=== PATIENT | female | born 1950 | race Asian ===

== ENCOUNTER 2021-05-09 08:41 | Outpatient (CLI) | payer MEDICARE | END 2021-05-09 23:59 | disposition home or self-care (01) | LOC: CFH 08:41 | DX: Z12.31 Encounter for screening mammogram for malignant neoplasm of breast (principal); Z13.820 Encounter for screening for osteoporosis; M85.88 Other specified disorders of bone density and structure, other site; N95.9 Unspecified menopausal and perimenopausal disorder | CPT/HCPCS: 77063; 77067; 77080 ==

== ENCOUNTER 2021-05-28 07:24 | Outpatient (CLI) | payer MEDICARE ==
[2021-05-28 07:45] LABS: BASOPHILS % (AUTO) 1 % (0-1); EOSINOPHILS % (AUTO) 6 % (1-7); LYMPHOCYTES % (AUTO) 33 % (22-44); MEAN CORPUSCULAR HGB CONC 33.7 g/dL (32.4-35.8); MEAN PLATELET VOLUME 7.5 fL (7.4-10.4); MONOCYTES % (AUTO) 8 % (2-9); NEUTROPHILS % (AUTO) 52 % (42-75); PLATELET COUNT 343 x10^3/uL (130-400); RED BLOOD COUNT 4.93 x10^6/uL (3.82-5.3); RED CELL DISTRIBUTION WIDTH 13.5 % (9.6-15.2)
[2021-05-28 07:57] LABS: ALBUMIN 3.7 g/dL (3.4-5.0); CALCIUM 9.3 mg/dL (8.5-10.1); CHLORIDE 108 mmol/L (98-107)
[2021-05-28 08:11] LABS: ALANINE AMINOTRANSFERASE 17 U/L (12-78); ALKALINE PHOSPHATASE 71 U/L (45-117); ANION GAP 5 mmol/L (5-15); BILIRUBIN,TOTAL 0.4 mg/dL (0.2-1.0); CHOL/HDL RATIO 3.8; CHOLESTEROL, TOTAL 274 mg/dL (140-239); CREATININE 0.82 mg/dL (0.55-1.02); HDL CHOL % 26 % (28-40); HDL CHOLESTEROL (DIRECT) 72 mg/dL (40-60); LDL CHOLESTEROL,CALCULATED 182 mg/dL (54-169); LDL/HDL RATIO 2.5 (0.5-3.0); TOTAL PROTEIN 7.8 g/dL (6.4-8.2); TRIGLYCERIDES 100 mg/dL (50-200); VLDL CHOLESTEROL 20 mg/dL (0-25)
== END 2021-05-28 23:59 | disposition home or self-care (01) ==
LOC: LAB 07:24
PROVIDERS: ATTEND Internal Medicine
DX: E78.2 Mixed hyperlipidemia (principal)
CPT/HCPCS: 36415; 80053; 80061; 85025